=== PATIENT | female | born 1985 | race African-American/Black ===

== ENCOUNTER → 2017-08-04 | Outpatient (CLI) | payer BC ==
[2017-08-04 11:45] LABS: ADD MAN DIFF? NO
[2017-08-04 11:52] LABS: BASO # 0.1 x10^3/uL (0.0-0.2); BASO % 1 % (0-3); EOS # 0.1 x10^3/uL (0.0-0.7); EOS % 1 % (0-3); HEMOGLOBIN 12.5 g/dL (12.0-15.5); LYMPH # 2.8 x10^3/uL (1.0-4.8); LYMPH % 30 % (24-48); MEAN CORPUSCULAR HEMOGLOBIN 32 pg (25-35); MEAN CORPUSCULAR HGB CONC 35 g/dL (31-37); MEAN CORPUSCULAR VOLUME 92 fL (79-100); MONO # 0.7 x10^3/uL (0.0-1.1); MONO % 8 % (0-9); NEUT # 5.9 x10^3uL (1.8-7.7); NEUT % 61 % (31-73); PLATELET COUNT 336 x10^3/uL (140-400); RED BLOOD COUNT 3.92 x10^6/uL (3.50-5.40); RED CELL DISTRIBUTION WIDTH 13.2 % (11.5-14.5); WHITE BLOOD COUNT 9.6 x10^3/uL (4.0-11.0)
[2017-08-04 12:26] LABS: BILIRUBIN,URINE NEGATIVE (NEG); CLARITY,URINE CLEAR; COLOR,URINE YELLOW; GLUCOSE,URINE NEGATIVE (NEG); NITRITE,URINE NEGATIVE (NEG); PROTEIN,URINE NEGATIVE (NEG-TRACE); UROBILINOGEN,URINE 0.2 mg/dL (0.2 mg/dL)
[2017-08-04 12:29] LABS: BACTERIA,URINE 0 /HPF (0-FEW); RBC,URINE 0 /HPF (0-2); SQUAMOUS EPITHELIAL CELL,UR FEW /LPF; WBC,URINE 0 /HPF (0-4)
[2017-08-05 07:32] LABS: RPR Non Reactive (Non Reactive)
[2017-08-05 14:29] LABS: HEP B SURFACE AG Negative (Negative); HIV ANTIBODY Non Reactive (Non Reactive)
== END | disposition home or self-care (01) ==
LOC: LAB 11:36
DX: Z32.01 Encounter for pregnancy test, result positive (principal); O21.0 Mild hyperemesis gravidarum; Z3A.00 Weeks of gestation of pregnancy not specified
CPT/HCPCS: 36415; 81001; 85025; 86593; 86703; 86762; 86850; 86900; 86901; 87340

== ENCOUNTER 2017-09-15 16:55 | Outpatient (CLI) | payer BC | END 2017-09-16 | disposition home or self-care (01) | LOC: LAB 16:55 | DX: Z34.82 Encounter for supervision of other normal pregnancy, second trimester (principal); Z3A.16 16 weeks gestation of pregnancy | CPT/HCPCS: 36415 ==

== ENCOUNTER → 2017-10-01 | Outpatient (CLI) | payer BC | END | disposition home or self-care (01) | LOC: KCIC US 13:49 | DX: Z34.82 Encounter for supervision of other normal pregnancy, second trimester (principal); Z3A.18 18 weeks gestation of pregnancy | CPT/HCPCS: 76805 ==

== ENCOUNTER → 2017-12-15 | Outpatient (CLI) | payer BC ==
[2017-12-15 11:24] LABS: GLUCOSE 79 mg/dL (70-99)
[2017-12-15 12:29] LABS: GLUCOSE 92 mg/dL (70-99)
== END | disposition home or self-care (01) ==
LOC: LAB 10:17
DX: Z34.83 Encounter for supervision of other normal pregnancy, third trimester (principal); Z3A.29 29 weeks gestation of pregnancy
CPT/HCPCS: 36415; 82947; 82950

== ENCOUNTER 2018-02-14 00:37 | Inpatient (IN) | payer BC ==
[~2018-02-14] VITALS: Ht 170.2 cm; Wt 112.0 kg
[2018-02-14 01:32] LABS: BILIRUBIN,URINE NEGATIVE (NEG); CLARITY,URINE CLEAR; COLOR,URINE YELLOW; NITRITE,URINE NEGATIVE (NEG); PROTEIN,URINE NEGATIVE (NEG-TRACE); UROBILINOGEN,URINE 0.2 mg/dL (0.2 mg/dL)
[2018-02-14 01:51] LABS: BACTERIA,URINE FEW /HPF (0-FEW); RBC,URINE 0 /HPF (0-2); SQUAMOUS EPITHELIAL CELL,UR MOD /LPF
[2018-02-14] MEDS ORDERED: ONDANSETRON PF 4 MG/2 ML VIAL. IV PRN ×2 (05:45→15:45)
[2018-02-14] MEDS ORDERED: OXYTOCIN 30 UNIT/500 ML PREMIX 500 ML IV PRN ×3 (05:45→21:45)
[2018-02-14] MEDS ORDERED: LIDOCAINE 1% PF 30 ML VIAL. INJ PRN (05:45)
[2018-02-14] MEDS ORDERED: TERBUTALINE 1 MG/ML VIAL. SQ PRN (05:45)
[2018-02-14] MEDS ORDERED: MAG HYDROX/ALUMINUM HYD/SIMETH 30 ML ORAL.SUSP PO PRN ×2 (05:45→21:45)
[2018-02-14] MEDS ORDERED: 0.9 % SODIUM CHLORIDE 10 ML DISP.SYRIN. IV PRN ×2 (05:45→21:45)
[2018-02-14] MEDS ORDERED: ACETAMINOPHEN 325 MG TABLET. PO PRN ×2 (05:45→21:45)
[2018-02-14] MEDS ORDERED: fentaNYL PF VIAL 100 MCG/2 ML VIAL IV PRN (05:45)
--- NOTE | 2018-02-14 06:10 | PDOC1 ---
OB - History Hx of Present Care: Good Care Ultrasounds: Normal mid trimester US Obstetrical Complications: None Medical Complications: None Past Family/Social History * Past Medical, Surgical, Family and Obstetric Histories reviewed from chart. Rubella: Immune RPR/VDRL: Negative GBS Status: Unknown HBsAG: Negative OB - Chief Complaint & HPI Date of Admission: Date of Admission: Feb 14, 2018 at 00:37 Chief Complaint/History : 3 Para: 2 EGA: 38 Reason for admission: active labor Admission Nurse Assessment Rev: Yes OB - Admission Exam Physical Exam HEENT: Normal Heart: Regular Rate Lungs: Clear Abdomen: Gravid, Non tender, Soft Extremities: Edema Reflexes: Normal Cervical Dilatation: 2cm Effacement: 50% Station: -3 Membranes: Intact Heart Rate: Normal Accelerations: Accelerations Present Decelerations: No decelerations Contractions on Admission: 6-10 Minutes Apart Intensity: Moderate Text A: 38 wks IUP Active labor GBS unknown P: Admit for labor management. Retrieve GBS status from clinic. If unable to obtain GBS status, then start Pen G prophylaxis. NAVYA CASH Jr, MD Feb 14, 2018 06:10
[2018-02-14] MEDS: IV RINGERS,LACTATED 1000ML 1,000 ML IV SCH ×3 (06:12→16:27)
[2018-02-14 07:07] LABS: BASO % 0 % (0-3); EOS % 0 % (0-3); HEMATOCRIT 31.5 % (36.0-47.0); HEMOGLOBIN 10.8 g/dL (12.0-15.5); LYMPH # 2.6 x10^3/uL (1.0-4.8); LYMPH % 20 % (24-48); MEAN CORPUSCULAR HEMOGLOBIN 31 pg (25-35); MEAN CORPUSCULAR HGB CONC 34 g/dL (31-37); MEAN CORPUSCULAR VOLUME 89 fL (79-100); MONO # 0.8 x10^3/uL (0.0-1.1); MONO % 6 % (0-9); NEUT # 9.6 x10^3uL (1.8-7.7); NEUT % 74 % (31-73); PLATELET COUNT 325 x10^3/uL (140-400); RED BLOOD COUNT 3.53 x10^6/uL (3.50-5.40); RED CELL DISTRIBUTION WIDTH 14.8 % (11.5-14.5)
[2018-02-14] MEDS ORDERED: PENICILLIN G K 5,000,000 UNIT in IV DEXTROSE 5% 100ML 100 ML IV ONE (09:30)
[2018-02-14] MEDS: PENICILLIN G K 2,500,000 UNIT in IV DEXTROSE 5% 50 ML IV SCH ×3 (13:40→21:47)
[2018-02-14] MEDS ORDERED: OXYTOCIN PREMIX 30 UNIT/500 ML BAG. IV ONE (15:00)
[2018-02-14] MEDS ORDERED: ROPIVacaine 0.2% PF 10 ML VIAL. ONE ×2 (15:00→15:43)
[2018-02-14] MEDS ORDERED: L&D EPIDURAL SYRINGE 50 ML EP ONE (15:43)
[2018-02-14] MEDS ORDERED: fentaNYL PF VIAL 100 MCG/2 ML VIAL EPI ONE (15:45)
[2018-02-14] MEDS ORDERED: ePHEDrine PF IN SALINE 50 MG/5 ML DISP.SYRIN IV PRN (15:45)
[2018-02-14] MEDS ORDERED: NALOXONE 0.4 MG/ML VIAL. IV PRN (15:45)
[2018-02-14] MEDS ORDERED: 0.9 % SODIUM CHLORIDE 20 ML VIAL. IJ ONE (16:26)
[2018-02-14] MEDS: L&D EPIDURAL SYRINGE 50 ML EP PRN ×2 (16:53→20:06)
[2018-02-14] MEDS ORDERED: SIMETHICONE 80 MG TAB.CHEW PO PRN (21:45)
[2018-02-14] MEDS ORDERED: MMR per PROTOCOL. MC PRN (21:45)
[2018-02-14] MEDS ORDERED: PHENYLEPH/MINERAL OIL/PETROLAT RECTAL OINTMENT 28GM TUBE. RC PRN (21:45)
[2018-02-14] MEDS ORDERED: ZOLPIDEM 5 MG TABLET. PO PRN (21:45)
[2018-02-14] MEDS ORDERED: HYDROCORTISONE 1% TOPICAL OINTMENT 30GM TUBE. TP PRN (21:45)
[2018-02-14] MEDS ORDERED: MAGNESIUM HYDROXIDE 2,400 MG/30 ML ORAL.SUSP. PO PRN (21:45)
[2018-02-14] MEDS ORDERED: diphenhydrAMINE HCL 25 MG CAPSULE PO PRN (21:45)
[2018-02-14] MEDS ORDERED: BENZOCAINE 20% TOPICAL AEROSOL SPRAY 57GM CAN. TP PRN (21:45)
--- NOTE | 2018-02-14 21:45 | PDOC ---
VAGINAL DELIVERY DATE DATE: 02/14/18 TIME: 21:42 : 3 Para: 3 EGA: 38 VAGINAL DELIVERY: VTX VACCUM ASSISTED: No PLACENTA: Spontaneous 8/9 SEX: Female WEIGHT Weight [2665 gm ] Nuchal Cord: Yes, Times 1 Amniotic Fluid: Clear PAIN: Epidural EPISIOTOMY: No EXTENSION: No EBL 300 ml COMPLICATIONS none CONDITION pt. stable Signs of Intrauterine Infectio: None Shoulder Dystocia: No NAVYA CASH Jr, MD Feb 14, 2018 21:45
[2018-02-15] MEDS: IBUPROFEN 800 MG TABLET. PO PRN ×3 (00:21→21:54)
[2018-02-15 01:00] VITALS: BP 111/57
[2018-02-15] MEDS: PENICILLIN G K 2,500,000 UNIT in IV DEXTROSE 5% 50 ML IV SCH (01:30)
[2018-02-15] MEDS ORDERED: INFLUENZA VAX SCREEN BY RX. MC PRN ×2 (03:15→23:30)
[2018-02-15 04:50] VITALS: BP 117/76
[2018-02-15 05:49] LABS: BASO # 0.1 x10^3/uL (0.0-0.2); BASO % 1 % (0-3); EOS % 0 % (0-3); HEMATOCRIT 32.2 % (36.0-47.0); LYMPH # 2.5 x10^3/uL (1.0-4.8); LYMPH % 18 % (24-48); MEAN CORPUSCULAR HEMOGLOBIN 31 pg (25-35); MEAN CORPUSCULAR HGB CONC 34 g/dL (31-37); MEAN CORPUSCULAR VOLUME 90 fL (79-100); MONO # 0.9 x10^3/uL (0.0-1.1); MONO % 7 % (0-9); NEUT # 10.1 x10^3uL (1.8-7.7); NEUT % 74 % (31-73); PLATELET COUNT 316 x10^3/uL (140-400); RED BLOOD COUNT 3.57 x10^6/uL (3.50-5.40); RED CELL DISTRIBUTION WIDTH 15.2 % (11.5-14.5); WHITE BLOOD COUNT 13.6 x10^3/uL (4.0-11.0)
[2018-02-15] MEDS ORDERED: FERROUS SULFATE 325 MG TABLET. PO SCH (08:00)
[2018-02-15] MEDS: DOCUSATE SODIUM 100 MG CAPSULE. PO PRN ×2 (09:46→21:54)
[2018-02-15] MEDS: oxyCODONE/APAP 5/325 1 TAB TABLET PO PRN ×2 (09:47→23:38)
[2018-02-15 10:20] VITALS: BP 122/78
--- NOTE | 2018-02-15 12:54 | PDOC ---
OB Progress Note Date of Service 02/15/18 Time of Evaluation 1250 Notes Pt. feeling well. No complaints. Lab Laboratory Tests Test 02/14/18 01:00 02/14/18 05:31 02/15/18 05:25 Urine Collection Type Unknown Urine Color Yellow Urine Clarity Clear Urine pH 7.0 Urine Specific [place] 1.010 Urine Protein Negative mg/dL (NEG-TRACE) Urine Glucose (UA) Negative mg/dL (NEG) Urine Ketones (Stick) Negative mg/dL (NEG) Urine Blood Negative (NEG) Urine Nitrite Negative (NEG) Urine Bilirubin Negative (NEG) Urine Urobilinogen Dipstick 0.2 mg/dL (0.2 mg/dL) Urine Leukocyte Esterase Negative (NEG) Urine RBC 0 /HPF (0-2) Urine WBC 1-4 /HPF (0-4) Urine Squamous Epithelial Cells Mod /LPF Urine Bacteria Few /HPF (0-FEW) Urine Mucus Slight /LPF White Blood Count 13.0 x10^3/uL (4.0-11.0) 13.6 x10^3/uL (4.0-11.0) Red Blood Count 3.53 x10^6/uL (3.50-5.40) 3.57 x10^6/uL (3.50-5.40) Hemoglobin 10.8 g/dL (12.0-15.5) 11.0 g/dL (12.0-15.5) Hematocrit 31.5 % (36.0-47.0) 32.2 % (36.0-47.0) Mean Corpuscular Volume 89 fL (79-100) 90 fL (79-100) Mean Corpuscular Hemoglobin 31 pg (25-35) 31 pg (25-35) Mean Corpuscular Hemoglobin Concent 34 g/dL (31-37) 34 g/dL (31-37) Red Cell Distribution Width 14.8 % (11.5-14.5) 15.2 % (11.5-14.5) Platelet Count 325 x10^3/uL (140-400) 316 x10^3/uL (140-400) Neutrophils (%) (Auto) 74 % (31-73) 74 % (31-73) Lymphocytes (%) (Auto) 20 % (24-48) 18 % (24-48) Monocytes (%) (Auto) 6 % (0-9) 7 % (0-9) Eosinophils (%) (Auto) 0 % (0-3) 0 % (0-3) Basophils (%) (Auto) 0 % (0-3) 1 % (0-3) Neutrophils # (Auto) 9.6 x10^3uL (1.8-7.7) 10.1 x10^3uL (1.8-7.7) Lymphocytes # (Auto) 2.6 x10^3/uL (1.0-4.8) 2.5 x10^3/uL (1.0-4.8) Monocytes # (Auto) 0.8 x10^3/uL (0.0-1.1) 0.9 x10^3/uL (0.0-1.1) Eosinophils # (Auto) 0.0 x10^3/uL (0.0-0.7) 0.0 x10^3/uL (0.0-0.7) Basophils # (Auto) 0.0 x10^3/uL (0.0-0.2) 0.1 x10^3/uL (0.0-0.2) Treponema pallidum Antibody Nonreactive (Nonreactive) Laboratory Tests Test 02/15/18 05:25 White Blood Count 13.6 x10^3/uL (4.0-11.0) Red Blood Count 3.57 x10^6/uL (3.50-5.40) Hemoglobin 11.0 g/dL (12.0-15.5) Hematocrit 32.2 % (36.0-47.0) Mean Corpuscular Volume 90 fL (79-100) Mean Corpuscular Hemoglobin 31 pg (25-35) Mean Corpuscular Hemoglobin Concent 34 g/dL (31-37) Red Cell Distribution Width 15.2 % (11.5-14.5) Platelet Count 316 x10^3/uL (140-400) Neutrophils (%) (Auto) 74 % (31-73) Lymphocytes (%) (Auto) 18 % (24-48) Monocytes (%) (Auto) 7 % (0-9) Eosinophils (%) (Auto) 0 % (0-3) Basophils (%) (Auto) 1 % (0-3) Neutrophils # (Auto) 10.1 x10^3uL (1.8-7.7) Lymphocytes # (Auto) 2.5 x10^3/uL (1.0-4.8) Monocytes # (Auto) 0.9 x10^3/uL (0.0-1.1) Eosinophils # (Auto) 0.0 x10^3/uL (0.0-0.7) Basophils # (Auto) 0.1 x10^3/uL (0.0-0.2) Medications Current Medications Sodium Chloride (Normal Saline Flush) 3 ml QSHIFT PRN IV AFTER MEDS AND BLOOD DRAWS; Start 02/14/18 at 05:45 Ringer's Solution 1,000 ml @ 125 mls/hr Q8H IV Last administered on 02/14/18at 16:27; Start 02/14/18 at 05:45; Stop 02/15/18 at 02:47; Status DC Fentanyl Citrate (Fentanyl 2ml Vial) 100 mcg PRN Q10MIN PRN IV Labor pain; Start 02/14/18 at 05:45 Acetaminophen (Tylenol) 650 mg PRN Q6HRS PRN PO MILD PAIN / TEMP Last administered on 02/15/18at 02:36; Start 02/14/18 at 05:45; Stop 02/15/18 at 11:31 ; Status DC Ondansetron HCl (Zofran) 4 mg PRN Q4HRS PRN IV NAUSEA/VOMITING; Start 02/14/18 at 05:45; Status Cancel Al Hydroxide/Mg Hydroxide (Mylanta Plus Xs) 30 ml PRN Q4HRS PRN PO HEARTBURN / GAS; Start 02/14/18 at 05:45; Status Cancel Terbutaline Sulfate (Brethine) 0.25 mg 1X PRN PRN SQ SEE COMMENTS; Start at 05:45; Stop 02/15/18 at 05:44; Status DC Lidocaine HCl (Xylocaine 1% Pf 30ml Vial) 30 ml 1X PRN PRN INJ SEE COMMENTS; Start 02/14/18 at 05:45; Stop 02/16/18 at 05:44 Oxytocin/Sodium Chloride 500 ml @ 0 mls/hr CONT PRN PRN IV Post delivery bleeding; Start 02/14/18 at 05:45; Stop 02/15/18 at 11:31; Status DC Ibuprofen (Motrin) 800 mg PRN Q6HRS PRN PO PAIN Last administered on 02/15/18at 06:14; Start 02/14/18 at 05:45; Stop 02/15/18 at 11:31; Status DC Penicillin G Potassium 6621640 unit/Dextrose 100 ml @ 100 mls/hr 1X ONCE IV Last administered on 02/14/18at 09:34; Start 02/14/18 at 09:30; Stop 02/14/18 at 10:29; Status DC Penicillin G Potassium [id number] unit/Dextrose 50 ml @ 100 mls/hr Q4H IV Last administered on 02/14/18at 21:47; Start 02/14/18 at 13:30; Stop 02/15/18 at 02:47 ; Status DC Oxytocin/Sodium Chloride 500 ml @ 0 mls/hr CONT PRN IV SEE I/O RECORD; Start at 12:30 Ephedrine Sulfate (ePHEDrine PF IN SALINE SYRINGE) 10 mg PRN Q2MIN PRN IV IF SBP<90; Start 02/14/18 at 15:45 Naloxone HCl (Narcan) 0.04 mg PRN Q1MIN PRN IV SEE COMMENTS; Start 02/14/18 at 15:45 Fentanyl Citrate (Fentanyl 2ml Vial) 100 mcg 1X ONCE EPI Last administered on 02/14/18at 16:54; Start 02/14/18 at 15:45; Stop 02/14/18 at 15:46; Status DC Ropivacaine/ Fentanyl/NS 50 ml @ 14 mls/hr CONT PRN EP PAIN Last administered on 02/14/18at 20:06; Start 02/14/18 at 15:45 Ondansetron HCl (Zofran) 4 mg PRN Q6HRS PRN IV NAUSEA/VOMITING; Start 02/14/18 at 15:45 Ropivacaine (Naropin 0.2%) 10 ml STK-MED ONCE .ROUTE ; Start 02/14/18 at 15:43; Stop 02/14/18 at 15:44; Status DC Ropivacaine/ Fentanyl/NS 50 ml @ As Directed STK-MED ONCE EP ; Start 02/14/18 at 15:43; Stop 02/14/18 at 15:44; Status DC Sodium Chloride (SODIUM CHLORIDE 20ml) 20 ml STK-MED ONCE IJ ; Start 02/14/18 at 16:26; Stop 02/14/18 at 16:27; Status DC Sodium Chloride (Normal Saline Flush) 10 ml QSHIFT PRN IV AFTER MEDS AND BLOOD DRAWS; Start 02/14/18 at 21:45 Oxytocin/Sodium Chloride 500 ml @ 62.5 mls/hr CONT PRN IV SEE I/O RECORD; Start 02/14/18 at 21:45; Stop 02/15/18 at 05:44; Status DC Acetaminophen (Tylenol) 650 mg PRN Q6HRS PRN PO MILD PAIN / TEMP; Start at 21:45 Ibuprofen (Motrin) 800 mg PRN Q8HRS PRN PO INFLAMMATION/PAIN PREVENTION; Start 02/14/18 at 21:45 Docusate Sodium (Colace) 100 mg PRN BID PRN PO CONSTIPATION Last administered on 02/15/18at 09:46; Start 02/14/18 at 21:45 Magnesium Hydroxide (Milk Of Magnesia) 2,400 mg PRN DAILY PRN PO CONSTIPATION; Start 02/14/18 at 21:45 Al Hydroxide/Mg Hydroxide (Mylanta Plus Xs) 30 ml PRN Q4HRS PRN PO HEARTBURN / GAS; Start 02/14/18 at 21:45 Simethicone (Gas-X) 80 mg PRN AFTMEALHC PRN PO GAS / BLOATING; Start 02/14/18 at 21:45 Diphenhydramine HCl (Benadryl) 25 mg PRN Q6HRS PRN PO ITCHING; Start 02/14/18 at 21:45 Benzocaine (Americaine) 1 spray PRN QID PRN TP TOPICAL PAIN; Start 02/14/18 at 21:45 Phenyleph/Shark Oil/Min Oil/Petrol (Preparation H) 1 sara PRN QID PRN RC RECTAL PAIN; Start 02/14/18 at 21:45 Hydrocortisone (Cortaid) 1 sara PRN QID PRN TP PERINEAL PAIN; Start 02/14/18 at 21:45 Ferrous Sulfate (Feosol) 325 mg BIDWMEALS PO ; Start 02/15/18 at 08:00; Stop at 08:00; Status DC Zolpidem Tartrate (Ambien) 5 mg PRN QHS PRN PO INSOMNIA, MAY REPEAT X1; Start 02/14/18 at 21:45 Info (Do NOT chart on this placeholder) 1 ea 1X PRN PRN MC SEE COMMENTS; Start 02/14/18 at 21:45 Info (Do NOT chart on this placeholder) 1 ea 1X PRN PRN MC SEE COMMENTS; Start 02/14/18 at 21:45 Oxycodone/ Acetaminophen (Percocet 5/325) 2 tab PRN Q4HRS PRN PO MODERATE PAIN , SEVERE PAIN Last administered on 02/15/18at 09:47; Start 02/14/18 at 21:45 Influenza Virus Vaccine (Afluria Trivalent [id number] Syringe) 0.5 ml ONCE ONCE VAX IM ; Start 02/17/18 at 07:00; Stop 02/17/18 at 07:01 Info (FLU VACCINE SCREEN per RX) 1 each PRN 1X PRN MC SEE COMMENTS; Start 02/15 at 03:15; Status Cancel Oxytocin/Sodium Chloride (Oxytocin Premix Infusion) 30 unit STK-MED ONCE IV ; Start 02/14/18 at 15:00; Stop 02/15/18 at 08:33; Status DC Ropivacaine (Naropin 0.2%) 10 ml STK-MED ONCE .ROUTE ; Start 02/14/18 at 15:00; Stop 02/15/18 at 08:33; Status DC Exam Abd: soft, non tender, fundus firm Assessment PPD#1 s/p Plan of Care: Continue current Tx, Mgmt NAVYA CASH Jr, MD Feb 15, 2018 12:54
[2018-02-15 14:20] VITALS: BP 116/78
[2018-02-15] MEDS ORDERED: DIPHTH,PERTUSS(ACELL),TET TOX 0.5 ML DISP.SYRIN. VAX IM ONE (18:30)
[2018-02-15 19:45] VITALS: BP 122/80
[2018-02-16] MEDS: oxyCODONE/APAP 5/325 1 TAB TABLET PO PRN ×2 (00:57→09:23)
[2018-02-16] MEDS: IBUPROFEN 800 MG TABLET. PO PRN ×2 (05:41→15:45)
[2018-02-16] MEDS: DOCUSATE SODIUM 100 MG CAPSULE. PO PRN (05:41)
[2018-02-16 06:06] VITALS: BP 115/74
[2018-02-16 10:13] VITALS: BP 123/82
[2018-02-16] MEDS ORDERED: BISACODYL 10 MG SUPP.RECT. PR PRN (15:30)
[2018-02-16 16:30] VITALS: BP 121/77
--- NOTE | 2018-02-16 17:03 | PDOC3 ---
OB DISCHARGE SUMMARY DATE OF ADMISSION: 02/14/18 DATE OF DISCHARGE: 02/16/18 REASON FOR ADMISSION: Onset of labor INTRAPARTUM PROCEDURES: Spontanous Vag Deliv DISCHARGE DIAGNOSIS: Term Delivered DISCHARGE INFORMATION: Activity (ad philipp), Diet (regular), Instructions (pelvic rest x 6 wks) HOSPITAL COURSE Term gestation delivered vaginally without any complications. NAVYA CASH Jr, MD Feb 16, 2018 17:03
--- NOTE | 2018-02-16 17:04 | DISCH ---
DISCHARGE INSTRUCTIONS Condition on Discharge Condition on Discharge: Stable Activity After Discharge Activity Instructions for Disc: Activity as tolerated Lifting Instructions after Dis: No heavy lifting Driving Instructions after Dis: Do not drive today Diet after Discharge Diet after Discharge: Regular Contacting the DRHany after DC Call your doctor for: Concerns you may have Follow-Up Follow up with: Dr. Huffman in 6 wks. NAVYA HUFFMAN Jr, MD Feb 16, 2018 17:04
[2018-02-16] MEDS ORDERED: IBUP800T19 PO (17:05)
== END 2018-02-16 18:08 | disposition home or self-care (01) | DRG 775 ==
LOC: 3 SO LND 00:37 → OBSVTOIN 05:48 → 3 NORTH 02-15 00:30 → UNDODISIN 02-15 11:00
PROVIDERS: ADMIT Obstetrics & Gynecology; ATTEND Obstetrics & Gynecology
PROC: 10E0XZZ Delivery of Products of Conception, External Approach (ICD-10-PCS; principal; 2018-02-14)
PROC: 00HU33Z Insertion of Infusion Device into Spinal Canal, Percutaneous Approach (ICD-10-PCS; 2018-02-14)
PROC: 3E0R3BZ Introduction of Anesthetic Agent into Spinal Canal, Percutaneous Approach (ICD-10-PCS; 2018-02-14)
PROC: 3E0234Z Introduction of Serum, Toxoid and Vaccine into Muscle, Percutaneous Approach (ICD-10-PCS; 2018-02-16)
PROC: 3E0234Z Introduction of Serum, Toxoid and Vaccine into Muscle, Percutaneous Approach (ICD-10-PCS; 2018-02-16)
DX: O69.81X0 Labor and delivery complicated by cord around neck, without compression, not applicable or unspecified (principal); Z37.0 Single live birth; Z3A.38 38 weeks gestation of pregnancy; Z23 Encounter for immunization
CPT/HCPCS: 36415; 81001; 85025; 86592; 86850; 86900; 86901; 90471; 90715; 90756; G0378; G0379; J2540; J2590; J2795; J3010; J7120; Q2035

== ENCOUNTER → 2018-08-26 | Outpatient (CLI) | payer BC ==
[~2018-08-26] MED LIST: IBUP800T19 PO
--- NOTE | 2018-08-26 17:08 | KCIC ---
PREG MORE THAN OR EQ TO 14 WKS History: Estimated weight, anatomic scan, placenta previa Comparison: None. Findings: Multiple sonographic images of the uterus are submitted. Transvaginal imaging was also performed. There is a single intrauterine fetus in breech presentation. There is demonstrable cardiac activity 132 bpm. Exam is limited apparently due to to patient's body habitus, also limited evaluation of anatomy at this age. Amniotic fluid volume is subjectively within normal limits, estimated ROSE MARY 10 cm. There is complete placenta previa, extending about 2.8 cm over the internal cervical os.. There is posterior placenta. There is visualization of the bladder, stomach, and 2 kidneys. There is no obvious abnormality of the visualized spine although limited evaluation. brain, four-chamber view of the heart, cord insertion, and face are not well visualized on this exam. Cervix measured 4.3 cm. Biometry data are as follows: Biparietal diameter 3.87 cm corresponds with 17 weeks 5 days Head circumference 13.85 cm corresponds with 17 weeks 2 days Abdominal circumference 11.45 cm corresponds with 17 weeks 2 days Femur length 2.34 cm corresponds 17 weeks 0 days Adjusted ultrasound age 17 weeks 2 days with estimated delivery date by ultrasound 02/01/2019 LMP age 17 weeks 2 days with estimated delivery date of 02/01/2019 Estimated weight 184 g +/- 27 g HC/AC ratio within normal limits 1.21 Impression: 1. There is complete placenta previa. 2. There is breech presentation of the single intrauterine fetus. Adjusted ultrasound age is 17 weeks 2 days with estimated delivery date by ultrasound 02/01/2019. anatomy is incompletely seen on this exam due to age and also patient's body habitus. Electronically signed by: Vacne Peterson MD (08/26/2018 5:05 PM) [id number]
== END | disposition home or self-care (01) ==
LOC: KCIC US 14:04
PROVIDERS: ATTEND Obstetrics & Gynecology
DX: O44.02 Complete placenta previa NOS or without hemorrhage, second trimester (principal); O32.1XX0 Maternal care for breech presentation, not applicable or unspecified; Z3A.17 17 weeks gestation of pregnancy
CPT/HCPCS: 76805

== ENCOUNTER → 2018-11-10 | Outpatient (CLI) | payer BC ==
--- NOTE | 2018-11-11 09:24 | KCIC ---
Obstetrical ultrasound, 11/10/2018: HISTORY: Follow-up placenta previa There is a single intrauterine fetus in a cephalic orientation. The biparietal diameter measures 7.0 cm compatible with a gestational age of 28-29 weeks. This correlates well with the other measurements yielding a average gestational age of 28 weeks and 3 days and a sonographic EDC of 01/30/2019. This correlates well with the previous EDC of 02/01/2019 established on the exam of 08/26/2018. Normal activity and heart motion are seen. A four-chamber heart is evident with a heart rate of 155 bpm. Fluid is identified in the bladder and stomach. The visualized portions of the kidneys and spine are unremarkable. A three-vessel umbilical cord is identified with a normal cord insertion site. A normal amount of amniotic fluid is present with the ROSE MARY calculated 10.2. The placenta lies posteriorly. Its lower edge continues to overlie the internal cervical os. The cervical length was estimated at 6 cm. IMPRESSION: 1. Single viable intrauterine fetus of 28-29 weeks gestational age as described above, which has demonstrated normal interval growth since 08/26/2018. 2. Continued placenta previa. Electronically signed by: Uvaldo Rodríguez MD (11/11/2018 9:20 AM) [facility]
== END | disposition home or self-care (01) ==
LOC: KCIC US 07:51
PROVIDERS: ATTEND Obstetrics & Gynecology
DX: O44.02 Complete placenta previa NOS or without hemorrhage, second trimester (principal); Z3A.28 28 weeks gestation of pregnancy
CPT/HCPCS: 76805

== ENCOUNTER → 2018-11-28 | Outpatient (CLI) | payer BC ==
[2018-11-28 09:01] LABS: BASO % 0 % (0-3); EOS % 1 % (0-3); HEMATOCRIT 31.4 % (36.0-47.0); HEMOGLOBIN 10.6 g/dL (12.0-15.5); LYMPH # 1.7 x10^3/uL (1.0-4.8); LYMPH % 17 % (24-48); MEAN CORPUSCULAR HEMOGLOBIN 31 pg (25-35); MEAN CORPUSCULAR HGB CONC 34 g/dL (31-37); MEAN CORPUSCULAR VOLUME 90 fL (79-100); MONO # 0.5 x10^3/uL (0.0-1.1); MONO % 5 % (0-9); NEUT # 8.1 x10^3uL (1.8-7.7); NEUT % 78 % (31-73); PLATELET COUNT 288 x10^3/uL (140-400); RED BLOOD COUNT 3.48 x10^6/uL (3.50-5.40); RED CELL DISTRIBUTION WIDTH 14.2 % (11.5-14.5); WHITE BLOOD COUNT 10.3 x10^3/uL (4.0-11.0)
== END | disposition home or self-care (01) ==
LOC: LAB 07:30
PROVIDERS: ATTEND Obstetrics & Gynecology
DX: O09.90 Supervision of high risk pregnancy, unspecified, unspecified trimester (principal)
CPT/HCPCS: 36415; 82950; 85025

== ENCOUNTER → 2018-12-02 | Outpatient (CLI) | payer BC | END | disposition home or self-care (01) | LOC: LAB 08:40 | PROVIDERS: ATTEND Obstetrics & Gynecology | DX: O09.90 Supervision of high risk pregnancy, unspecified, unspecified trimester (principal) | CPT/HCPCS: 36415; 82947; 82950 ==

== ENCOUNTER 2019-01-03 14:36 | Observation (INO) | payer BC ==
[~2019-01-03] VITALS: Ht 170.2 cm; Wt 113.4 kg
[2019-01-03] MEDS ORDERED: BETAMET ACET&NA PHOS 30 MG/5 ML VIAL. IM ONE (14:45)
== END 2019-01-03 16:00 | disposition home or self-care (01) ==
LOC: 3 SO LND 14:36
PROVIDERS: ADMIT Obstetrics & Gynecology; ATTEND Obstetrics & Gynecology
DX: Z34.90 Encounter for supervision of normal pregnancy, unspecified, unspecified trimester (principal); Z3A.00 Weeks of gestation of pregnancy not specified
CPT/HCPCS: 96372; G0378; G0379; J0702

== ENCOUNTER 2019-01-04 05:32 | Inpatient (IN) | payer BC ==
[~2019-01-04] VITALS: Ht 170.2 cm; Wt 113.4 kg
[2019-01-04] MEDS ORDERED: IV RINGERS,LACTATED 1000ML 1,000 ML IV SCH (05:45)
[2019-01-04] MEDS ORDERED: CITRIC ACID/SODIUM CITRATE 30 ML SOLUTION. PO ONE (05:45)
[2019-01-04] MEDS ORDERED: BETAMET ACET&NA PHOS 30 MG/5 ML VIAL. IM ONE (06:00)
[2019-01-04 06:21] LABS: HEMATOCRIT 34.2 % (36.0-47.0); HEMOGLOBIN 11.7 g/dL (12.0-15.5); RED BLOOD COUNT 3.88 x10^6/uL (3.50-5.40); RED CELL DISTRIBUTION WIDTH 14.6 % (11.5-14.5); WHITE BLOOD COUNT 18.8 x10^3/uL (4.0-11.0)
[2019-01-04] MEDS: IV RINGERS,LACTATED 1000ML 1,000 ML IV SCH (07:03)
--- NOTE | 2019-01-04 07:03 | PDOC1 ---
OB - History Hx of Present Care: Good Care Ultrasounds: Abnormal US findings (complete placenta previa) Obstetrical Complications: Gestational Diabetes, Other (complete placenta previa) Medical Complications: None Past Family/Social History * Past Medical, Surgical, Family and Obstetric Histories reviewed from chart. Rubella: Immune RPR/VDRL: Negative GBS Status: Negative HBsAG: Negative OB - Chief Complaint & HPI Date of Admission: Date of Admission: Jan 04, 2019 at 05:32 Chief Complaint/History : 5 Para: 4 EGA: 36 Reason for admission: section (Complete placenta previa and desires BTL) Admission Nurse Assessment Rev: Yes OB - Admission Exam Physical Exam HEENT: Normal Heart: Regular Rate Lungs: Clear Abdomen: Gravid, Non tender, Soft Extremities: Edema Reflexes: Normal Cervical Dilatation: None Effacement: 0% Station: Ballotable Membranes: Intact Heart Rate: Normal Accelerations: Accelerations Present Decelerations: No decelerations Contractions on Admission: >10 Minutes Apart Intensity: Mild Text A: 36 wks IUP Complete Placenta Previa Desires BTL P: Admit for section and BTL. NAVYA CASH Jr, MD Jan 04, 2019 07:03
[2019-01-04] MEDS ORDERED: ONDANSETRON PF 4 MG/2 ML VIAL. ONE (07:14)
[2019-01-04] MEDS ORDERED: MORPHINE PF 10 MG/10 ML AMPUL. ONE (07:14)
[2019-01-04] MEDS ORDERED: OXYTOCIN 10 UNIT/ML VIAL. ONE ×2 (07:14→08:47)
[2019-01-04] MEDS ORDERED: FAMOTIDINE 20 MG/2 ML VIAL ONE (07:14)
[2019-01-04] MEDS ORDERED: PHENYLEPHRINE in 0.9% NACL PF 1 MG/10 ML SYRINGE. IV ONE (07:14)
[2019-01-04] MEDS ORDERED: METOCLOPRAMIDE HCL 10 MG/2 ML VIAL. ONE (07:14)
[2019-01-04] MEDS ORDERED: fentaNYL PF VIAL 100 MCG/2 ML VIAL ONE (07:14)
[2019-01-04] MEDS ORDERED: ePHEDrine PF IN SALINE 50 MG/10 ML SYRINGE. IV ONE (07:14)
[2019-01-04] MEDS ORDERED: KETOROLAC 30 MG/ML VIAL. IV PRN ×2 (07:15→08:45)
[2019-01-04] MEDS ORDERED: DEXAMETHASONE SOD PHOS 4 MG/ML VIAL ONE (07:15)
[2019-01-04] MEDS ORDERED: PROPOFOL 20 ML IV ONE (08:35)
[2019-01-04] MEDS ORDERED: KETOROLAC 30 MG/ML INJ FOR OR. INJ ONE (08:36)
--- NOTE | 2019-01-04 08:44 | PDOC4 ---
OB Operative Note Date: Jan 04, 2019 PRE OP DIAGNOSIS: Other (Complete Placenta Previa and desires BTL) POST OP DIAGNOSIS: Other (Same) OPERATION PERFORMED: [facility] (BT) Surgeon Dr. Huffman Inspector Fuel Hose Dr. Monae Anesthesia: Regional (Spinal) Blood Loss 700 ml Specimen placenta and infant and bilateral tubal segments OB Findings: Position (Vertex), Sex (Female), (7/9), Weight (6 Lb) Complications none Additional Remarks pt. NAVYA Layton Jr, MD Jan 04, 2019 08:44
[2019-01-04] MEDS ORDERED: ZOLPIDEM 5 MG TABLET. PO PRN (08:45)
[2019-01-04] MEDS ORDERED: ONDANSETRON PF 4 MG/2 ML VIAL. IV PRN (08:45)
[2019-01-04] MEDS ORDERED: MAG HYDROX/ALUMINUM HYD/SIMETH 30 ML ORAL.SUSP PO PRN (08:45)
[2019-01-04] MEDS ORDERED: 0.9 % SODIUM CHLORIDE 10 ML DISP.SYRIN. IV PRN (08:45)
[2019-01-04] MEDS ORDERED: OXYTOCIN 30 UNIT/500 ML PREMIX 500 ML IV PRN (08:45)
[2019-01-04] MEDS ORDERED: diphenhydrAMINE ORAL ELIXIR 12.5 MG/5 ML ML PO PRN (08:45)
--- NOTE | 2019-01-04 10:09 | OP ---
DATE OF SURGERY: 01/04/2019 PREOPERATIVE DIAGNOSES: 1. Thirty-six weeks' intrauterine . 2. Complete placenta previa. 3. Desires bilateral tubal ligation. POSTOPERATIVE DIAGNOSES: 1. Thirty-six weeks' intrauterine . 2. Complete placenta previa. 3. Desires bilateral tubal ligation. PROCEDURE: Primary low transverse section and bilateral tubal ligation. SURGEON: Navya Huffman MD SWAGE TOOLSETTER: Dr. Monae. ANESTHESIA: Spinal. ESTIMATED BLOOD LOSS: 700 mL. COMPLICATIONS: None. FINDINGS: Viable female , Apgars 7 and 9, weight 6 pounds even. Three-vessel cord placenta delivered manually intact. SUMMARY: A 33-year-old at 36 weeks' gestation with complete placenta previa, presented for primary low transverse section and bilateral tubal ligation. The patient did receive late dose steroids with betamethasone. She was counseled on the risks, benefits and expectations and voiced clear understanding to proceed. DESCRIPTION OF PROCEDURE: The patient was taken to surgery suite and placed in dorsal supine position. She was prepped with ChloraPrep and draped in sterile fashion. After adequate anesthesia, Pfannenstiel skin incision was made with scalpel down to the fascia. The fascia was extended laterally using curved Linares scissors. The superior edge of fascia was grasped with two Best clamps and dissected free of the abdominal rectus muscles using blunt dissection along with Bovie cautery. The same process took place inferiorly. The abdominal rectus muscles were dissected bluntly at the midline. Peritoneum was grasped with 2 hemostats and entered sharply with Metzenbaum scissors. This incision was extended superiorly as well as inferiorly. The Shan ring retractor was placed. Low transverse hysterotomy incision was made with scalpel down to the amniotic sac. Hysterotomy incision was extended laterally and superiorly digitally. Amniotomy was performed with Allis clamp, which elicited moderate amount of clear fluid. With the aid of fundal pressure, the 's head was delivered in a smooth atraumatic manner. With additional fundal pressure, the anterior shoulder was delivered followed by posterior shoulder and rest of female was delivered. was suctioned with bulb syringe orally and nasally, umbilical cord was clamped twice and cut and viable female infant was handed to waiting nursing staff. Umbilical cord blood as well as arterial blood was then obtained. Three-vessel cord placenta was delivered manually intact. The uterus was then exteriorized and cleared of clot and debris with moist lap. Hysterotomy incision was reapproximated using 1 Vicryl suture in running locked fashion. Four [id number] sutures were placed for better hemostasis. The uterus palpated firm. Fallopian tubes and ovaries appeared normal bilaterally. Posterior cul-de-sac was cleared of clot and debris with a moist lap. A [place] was used to grasp the left fallopian tube. The mesosalpinx was undermined with Bovie cautery. Proximal and distal ends of the fallopian tube were tied with plain gut suture. The mid section of fallopian tube was excised using Metzenbaum scissors. The two telescoping ends were visualized and cautery was utilized for good hemostasis. Same process took place with the right adnexa. The uterus was then returned to the abdomen. Pericolic gutters were cleared of clot and debris with a moist lap. Posterior cul-de-sac was cleared of clot and debris with a moist lap. The Shan ring retractor was removed. The peritoneum was reapproximated using #1 Vicryl suture in running fashion. Fascia was reapproximated using 0 Vicryl suture in running fashion. Skin was reapproximated using 4-0 Vicryl suture in subcuticular manner. The patient tolerated the procedure well and was taken to recovery room in stable condition. Sponge and needle count correct x 3. NAVYA HUFFMAN MD DR: SCOTT/pernell JOB#: [id number] / [id number]
[2019-01-04 11:00] VITALS: BP 108/56
[2019-01-04 11:30] VITALS: BP 98/52
[2019-01-04 12:00] VITALS: BP 118/58
[2019-01-04 13:00] VITALS: BP 109/67
[2019-01-04] MEDS: diphenhydrAMINE 50 MG/ML VIAL IVP PRN ×2 (14:31→22:07)
[2019-01-04] MEDS: DOCUSATE SODIUM 100 MG CAPSULE. PO PRN (17:31)
[2019-01-04] MEDS: SIMETHICONE 80 MG TAB.CHEW PO PRN (17:31)
[2019-01-04] MEDS: FERROUS SULFATE 325 MG TABLET. PO SCH (17:31)
[2019-01-04] MEDS: IBUPROFEN 400 MG TABLET. PO PRN ×2 (17:32→22:06)
[2019-01-04 17:52] VITALS: BP 125/75
[2019-01-04 21:15] VITALS: BP 120/74
[2019-01-04] MEDS: oxyCODONE/APAP 5/325 1 TAB TABLET PO PRN (22:06)
[2019-01-05] MEDS: IV RINGERS,LACTATED 1000ML 1,000 ML IV SCH (00:07)
[2019-01-05 01:30] VITALS: BP 100/52
[2019-01-05 04:50] VITALS: BP 128/77
[2019-01-05] MEDS: oxyCODONE/APAP 5/325 1 TAB TABLET PO PRN ×4 (04:58→22:14)
[2019-01-05] MEDS: IBUPROFEN 400 MG TABLET. PO PRN ×3 (04:59→16:23)
[2019-01-05 05:00] LABS: BASO # 0.1 x10^3/uL (0.0-0.2); BASO % 0 % (0-3); EOS % 0 % (0-3); HEMOGLOBIN 9.5 g/dL (12.0-15.5); LYMPH % 8 % (24-48); MEAN CORPUSCULAR HEMOGLOBIN 30 pg (25-35); MEAN CORPUSCULAR HGB CONC 34 g/dL (31-37); MEAN CORPUSCULAR VOLUME 89 fL (79-100); MONO # 1.2 x10^3/uL (0.0-1.1); MONO % 5 % (0-9); NEUT # 21.4 x10^3/uL (1.8-7.7); NEUT % 87 % (31-73); PLATELET COUNT 269 x10^3/uL (140-400); RED BLOOD COUNT 3.15 x10^6/uL (3.50-5.40); RED CELL DISTRIBUTION WIDTH 14.6 % (11.5-14.5); WHITE BLOOD COUNT 24.7 x10^3/uL (4.0-11.0)
[2019-01-05] MEDS: diphenhydrAMINE 50 MG/ML VIAL IVP PRN (05:14)
[2019-01-05 08:02] LABS: % BANDS 9 % (0-9); % LYMPHS 10 % (24-48); % MONOS 4 % (0-10); % SEGS 77 % (35-66); PLT ESTIMATE ADEQUATE (ADEQUATE)
[2019-01-05] MEDS ORDERED: HYDROmorphone 2 MG/ML VIAL IVP PRN (08:15)
[2019-01-05] MEDS: FERROUS SULFATE 325 MG TABLET. PO SCH ×2 (09:02→16:22)
[2019-01-05] MEDS: DOCUSATE SODIUM 100 MG CAPSULE. PO PRN ×2 (09:02→22:14)
--- NOTE | 2019-01-05 09:49 | PDOC ---
OB Progress Note Date of Service 01/05/19 Time of Evaluation 0945 Notes Pt. feeling well. Pain controlled. No complaints. Lab Laboratory Tests Test 01/04/19 06:00 01/05/19 04:45 White Blood Count 18.8 x10^3/uL (4.0-11.0) 24.7 x10^3/uL (4.0-11.0) Red Blood Count 3.88 x10^6/uL (3.50-5.40) 3.15 x10^6/uL (3.50-5.40) Hemoglobin 11.7 g/dL (12.0-15.5) 9.5 g/dL (12.0-15.5) Hematocrit 34.2 % (36.0-47.0) 28.0 % (36.0-47.0) Mean Corpuscular Volume 88 fL (79-100) 89 fL (79-100) Mean Corpuscular Hemoglobin 30 pg (25-35) 30 pg (25-35) Mean Corpuscular Hemoglobin Concent 34 g/dL (31-37) 34 g/dL (31-37) Red Cell Distribution Width 14.6 % (11.5-14.5) 14.6 % (11.5-14.5) Platelet Count 321 x10^3/uL (140-400) 269 x10^3/uL (140-400) Treponema pallidum Antibody Nonreactive (Nonreactive) Neutrophils (%) (Auto) 87 % (31-73) Lymphocytes (%) (Auto) 8 % (24-48) Monocytes (%) (Auto) 5 % (0-9) Eosinophils (%) (Auto) 0 % (0-3) Basophils (%) (Auto) 0 % (0-3) Neutrophils # (Auto) 21.4 x10^3/uL (1.8-7.7) Lymphocytes # (Auto) 2.0 x10^3/uL (1.0-4.8) Monocytes # (Auto) 1.2 x10^3/uL (0.0-1.1) Eosinophils # (Auto) 0.0 x10^3/uL (0.0-0.7) Basophils # (Auto) 0.1 x10^3/uL (0.0-0.2) Segmented Neutrophils % 77 % (35-66) Band Neutrophils % 9 % (0-9) Lymphocytes % 10 % (24-48) Monocytes % 4 % (0-10) Platelet Estimate Adequate (ADEQUATE) Laboratory Tests Test 01/05/19 04:45 White Blood Count 24.7 x10^3/uL (4.0-11.0) Red Blood Count 3.15 x10^6/uL (3.50-5.40) Hemoglobin 9.5 g/dL (12.0-15.5) Hematocrit 28.0 % (36.0-47.0) Mean Corpuscular Volume 89 fL (79-100) Mean Corpuscular Hemoglobin 30 pg (25-35) Mean Corpuscular Hemoglobin Concent 34 g/dL (31-37) Red Cell Distribution Width 14.6 % (11.5-14.5) Platelet Count 269 x10^3/uL (140-400) Neutrophils (%) (Auto) 87 % (31-73) Lymphocytes (%) (Auto) 8 % (24-48) Monocytes (%) (Auto) 5 % (0-9) Eosinophils (%) (Auto) 0 % (0-3) Basophils (%) (Auto) 0 % (0-3) Neutrophils # (Auto) 21.4 x10^3/uL (1.8-7.7) Lymphocytes # (Auto) 2.0 x10^3/uL (1.0-4.8) Monocytes # (Auto) 1.2 x10^3/uL (0.0-1.1) Eosinophils # (Auto) 0.0 x10^3/uL (0.0-0.7) Basophils # (Auto) 0.1 x10^3/uL (0.0-0.2) Segmented Neutrophils % 77 % (35-66) Band Neutrophils % 9 % (0-9) Lymphocytes % 10 % (24-48) Monocytes % 4 % (0-10) Platelet Estimate Adequate (ADEQUATE) Medications Current Medications Ringer's Solution 1,000 ml @ 1,000 mls/hr Q1H IV Last administered on 01/04/19at 05:58; Start 01/04/19 at 05:45; Stop 01/04/19 at 06:44; Status DC Ringer's Solution 1,000 ml @ 125 mls/hr Q8H IV Last administered on 01/05/19at 00:07; Start 01/04/19 at 05:45 Cefazolin Sodium/ Dextrose 50 ml @ 100 mls/hr 1X ONCE IV Last administered on 01/04/19at 07:06; Start 01/04/19 at 06:00; Stop 01/04/19 at 06:29; Status DC Citric Acid/ Sodium Citrate (Bicitra) 30 ml 1X ONCE PO Last administered on 01/04/19at 07:07; Start 01/04/19 at 05:45; Stop 01/04/19 at 05:46; Status DC Betamethasone Sodium Phosphate (Celestone Soluspan) 12 mg 1X ONCE IM Last administered on 01/04/19at 05:58; Start 01/04/19 at 06:00; Stop 01/04/19 at 06 :01; Status DC Ketorolac Tromethamine (Toradol 30mg Vial) 30 mg PRN Q6HRS PRN IV PAIN; Start 01/04/19 at 07:15; Stop 01/04/19 at 08:53; Status DC Famotidine (Pepcid Vial) 20 mg STK-MED ONCE .ROUTE ; Start 01/04/19 at 07:14; Stop 01/04/19 at 07:15; Status DC Metoclopramide HCl (Reglan Vial) 10 mg STK-MED ONCE .ROUTE ; Start 01/04/19 at 07:14; Stop 01/04/19 at 07:15; Status DC Ondansetron HCl (Zofran) 4 mg STK-MED ONCE .ROUTE ; Start 01/04/19 at 07:14; Stop 01/04/19 at 07:15; Status DC Phenylephrine HCl (PHENYLEPHRINE in 0.9% NACL PF) 1 mg STK-MED ONCE IV ; Start 01/04/19 at 07:14; Stop 01/04/19 at 07:15; Status DC Oxytocin (Pitocin) 10 unit STK-MED ONCE .ROUTE ; Start 01/04/19 at 07:14; Stop 01/04/19 at 07:15; Status DC Ephedrine Sulfate (ePHEDrine PF IN SALINE SYRINGE) 50 mg STK-MED ONCE IV ; Start 01/04/19 at 07:14; Stop 01/04/19 at 07:15; Status DC Morphine Sulfate (Morphine Preservative Free) 10 mg STK-MED ONCE .ROUTE ; Start 01/04/19 at 07:14; Stop 01/04/19 at 07:15; Status DC Fentanyl Citrate (Fentanyl 2ml Vial) 100 mcg STK-MED ONCE .ROUTE ; Start 01/04/19 at 07:14; Stop 01/04/19 at 07:15; Status DC Dexamethasone Sodium Phosphate (Decadron) 4 mg STK-MED ONCE .ROUTE ; Start 01/04/19 at 07:15; Stop 01/04/19 at 07:15; Status DC Propofol 20 ml @ As Directed STK-MED ONCE IV ; Start 01/04/19 at 08:35; Stop 01/04/19 at 08:36; Status DC Ketorolac Tromethamine (Toradol For Or Only) 30 mg STK-MED ONCE INJ ; Start 01/04/19 at 08:36; Stop 01/04/19 at 08:37; Status DC Sodium Chloride (Normal Saline Flush) 3 ml QSHIFT PRN IV AFTER MEDS AND BLOOD DRAWS; Start 01/04/19 at 08:45 Oxytocin/Sodium Chloride 500 ml @ 125 mls/hr CONT PRN IV EXCESSIVE POST- BLEEDING; Start 01/04/19 at 08:45; Stop 01/04/19 at 16:44; Status DC Ibuprofen (Motrin) 800 mg PRN Q4HRS PRN PO INFLAMMATION Last administered on 01/05/19at 04:59; Start 01/04/19 at 08:45 Ondansetron HCl (Zofran) 4 mg PRN Q6HRS PRN IV NAUSEA/VOMITING; Start 01/04/19 at 08:45 Docusate Sodium (Colace) 100 mg PRN BID PRN PO CONSTIPATION Last administered o n 01/05/19at 09:02; Start 01/04/19 at 08:45 Al Hydroxide/Mg Hydroxide (Mylanta Plus Xs) 30 ml PRN Q4HRS PRN PO HEARTBURN / GAS; Start 01/04/19 at 08:45 Simethicone (Gas-X) 80 mg PRN AFTMEALHC PRN PO GAS / BLOATING Last administered on 01/04/19at 17:32; Start 01/04/19 at 08:45 Diphenhydramine HCl (Benadryl Oral Elixir) 12.5 mg PRN Q6HRS PRN PO ITCHING; Start 01/04/19 at 08:45 Ferrous Sulfate (Feosol) 325 mg BIDWMEALS PO Last administered on 01/05/19at 09:02; Start 01/04/19 at 17:00 Zolpidem Tartrate (Ambien) 5 mg PRN QHS PRN PO INSOMNIA, MAY REPEAT X1; Start 01/04/19 at 08:45 Oxycodone/ Acetaminophen (Percocet 5/325) 2 tab PRN Q4HRS PRN PO MODERATE PAIN, SEVERE PAIN Last administered on 01/05/19at 04:58; Start 01/04/19 at 08:45 Ketorolac Tromethamine (Toradol 30mg Vial) 30 mg PRN Q6HRS PRN IV PAIN; Start 01/04/19 at 08:45; Stop 01/09/19 at 08:44 Oxytocin (Pitocin) 10 unit STK-MED ONCE .ROUTE ; Start 01/04/19 at 08:47; Stop 01/04/19 at 08:47; Status DC Diphenhydramine HCl (Benadryl) 25 mg PRN Q6HRS PRN IVP ITCHING Last administered on 01/05/19at 05:14; Start 01/04/19 at 14:30 Hydromorphone HCl (Dilaudid) 0.2 mg PRN Q4HRS PRN IVP PAIN; Start 01/05/19 at 08:15 Active Scripts Active Ibuprofen 800 Mg Tablet 800 Mg PO PRN Q8HRS PRN Exam Abd: soft, mild tendernes, fundus firm Bandage removed. Incision site: clean, dry and intact Assessment POD#1 c/s and BTL Plan of Care: Continue current Tx, Mgmt NAVYA CASH Jr, MD Jan 05, 2019 09:49
[2019-01-05 10:57] VITALS: BP 122/77
[2019-01-05 16:52] VITALS: BP 109/72
[2019-01-05 22:15] VITALS: BP 107/67
[2019-01-06] MEDS: IBUPROFEN 400 MG TABLET. PO PRN ×4 (00:50→23:46)
[2019-01-06] MEDS: oxyCODONE/APAP 5/325 1 TAB TABLET PO PRN ×5 (06:28→23:46)
[2019-01-06 06:30] VITALS: BP 122/70
--- NOTE | 2019-01-06 08:41 | PDOC ---
OB Progress Note Date of Service 01/06/19 Time of Evaluation 0840 Notes Pt. feeling well. No complaints. Lab Laboratory Tests Test 01/05/19 04:45 White Blood Count 24.7 x10^3/uL (4.0-11.0) Red Blood Count 3.15 x10^6/uL (3.50-5.40) Hemoglobin 9.5 g/dL (12.0-15.5) Hematocrit 28.0 % (36.0-47.0) Mean Corpuscular Volume 89 fL (79-100) Mean Corpuscular Hemoglobin 30 pg (25-35) Mean Corpuscular Hemoglobin Concent 34 g/dL (31-37) Red Cell Distribution Width 14.6 % (11.5-14.5) Platelet Count 269 x10^3/uL (140-400) Neutrophils (%) (Auto) 87 % (31-73) Lymphocytes (%) (Auto) 8 % (24-48) Monocytes (%) (Auto) 5 % (0-9) Eosinophils (%) (Auto) 0 % (0-3) Basophils (%) (Auto) 0 % (0-3) Neutrophils # (Auto) 21.4 x10^3/uL (1.8-7.7) Lymphocytes # (Auto) 2.0 x10^3/uL (1.0-4.8) Monocytes # (Auto) 1.2 x10^3/uL (0.0-1.1) Eosinophils # (Auto) 0.0 x10^3/uL (0.0-0.7) Basophils # (Auto) 0.1 x10^3/uL (0.0-0.2) Segmented Neutrophils % 77 % (35-66) Band Neutrophils % 9 % (0-9) Lymphocytes % 10 % (24-48) Monocytes % 4 % (0-10) Platelet Estimate Adequate (ADEQUATE) Medications Current Medications Ringer's Solution 1,000 ml @ 1,000 mls/hr Q1H IV Last administered on 01/04/19at 05:58; Start 01/04/19 at 05:45; Stop 01/04/19 at 06:44; Status DC Ringer's Solution 1,000 ml @ 125 mls/hr Q8H IV Last administered on 01/05/19at 00:07; Start 01/04/19 at 05:45; Stop 01/05/19 at 14:55; Status DC Cefazolin Sodium/ Dextrose 50 ml @ 100 mls/hr 1X ONCE IV Last administered on 01/04/19at 07:06; Start 01/04/19 at 06:00; Stop 01/04/19 at 06:29; Status DC Citric Acid/ Sodium Citrate (Bicitra) 30 ml 1X ONCE PO Last administered on 01/04/19at 07:07; Start 01/04/19 at 05:45; Stop 01/04/19 at 05:46; Status DC Betamethasone Sodium Phosphate (Celestone Soluspan) 12 mg 1X ONCE IM Last administered on 01/04/19at 05:58; Start 01/04/19 at 06:00; Stop 01/04/19 at 06:01; Status DC Ketorolac Tromethamine (Toradol 30mg Vial) 30 mg PRN Q6HRS PRN IV PAIN; Start 01/04/19 at 07:15; Stop 01/04/19 at 08:53; Status DC Famotidine (Pepcid Vial) 20 mg STK-MED ONCE .ROUTE ; Start 01/04/19 at 07:14; Stop 01/04/19 at 07:15; Status DC Metoclopramide HCl (Reglan Vial) 10 mg STK-MED ONCE .ROUTE ; Start 01/04/19 at 07:14; Stop 01/04/19 at 07:15; Status DC Ondansetron HCl (Zofran) 4 mg STK-MED ONCE .ROUTE ; Start 01/04/19 at 07:14; Stop 01/04/19 at 07:15; Status DC Phenylephrine HCl (PHENYLEPHRINE in 0.9% NACL PF) 1 mg STK-MED ONCE IV ; Start 01/04/19 at 07:14; Stop 01/04/19 at 07:15; Status DC Oxytocin (Pitocin) 10 unit STK-MED ONCE .ROUTE ; Start 01/04/19 at 07:14; Stop 01/04/19 at 07:15; Status DC Ephedrine Sulfate (ePHEDrine PF IN SALINE SYRINGE) 50 mg STK-MED ONCE IV ; Start 01/04/19 at 07:14; Stop 01/04/19 at 07:15; Status DC Morphine Sulfate (Morphine Preservative Free) 10 mg STK-MED ONCE .ROUTE ; Start 01/04/19 at 07:14; Stop 01/04/19 at 07:15; Status DC Fentanyl Citrate (Fentanyl 2ml Vial) 100 mcg STK-MED ONCE .ROUTE ; Start 01/04/19 at 07:14; Stop 01/04/19 at 07:15; Status DC Dexamethasone Sodium Phosphate (Decadron) 4 mg STK-MED ONCE .ROUTE ; Start 01/04/19 at 07:15; Stop 01/04/19 at 07:15; Status DC Propofol 20 ml @ As Directed STK-MED ONCE IV ; Start 01/04/19 at 08:35; Stop 01/04/19 at 08:36; Status DC Ketorolac Tromethamine (Toradol For Or Only) 30 mg STK-MED ONCE INJ ; Start 01/04/19 at 08:36; Stop 01/04/19 at 08:37; Status DC Sodium Chloride (Normal Saline Flush) 3 ml QSHIFT PRN IV AFTER MEDS AND BLOOD DRAWS; Start 01/04/19 at 08:45; Stop 01/05/19 at 14:55; Status DC Oxytocin/Sodium Chloride 500 ml @ 125 mls/hr CONT PRN IV EXCESSIVE POST- BLEEDING; Start 01/04/19 at 08:45; Stop 01/04/19 at 16:44; Status DC Ibuprofen (Motrin) 800 mg PRN Q4HRS PRN PO INFLAMMATION Last administered on 01/06/19at 00:50; Start 01/04/19 at 08:45 Ondansetron HCl (Zofran) 4 mg PRN Q6HRS PRN IV NAUSEA/VOMITING; Start 01/04/19 at 08:45; Stop 01/05/19 at 14:55; Status DC Docusate Sodium (Colace) 100 mg PRN BID PRN PO CONSTIPATION Last administered on 01/05/19at 22:14; Start 01/04/19 at 08:45 Al Hydroxide/Mg Hydroxide (Mylanta Plus Xs) 30 ml PRN Q4HRS PRN PO HEARTBURN / GAS; Start 01/04/19 at 08:45 Simethicone (Gas-X) 80 mg PRN AFTMEALHC PRN PO GAS / BLOATING Last administered on 01/04/19at 17:32; Start 01/04/19 at 08:45 Diphenhydramine HCl (Benadryl Oral Elixir) 12.5 mg PRN Q6HRS PRN PO ITCHING; Start 01/04/19 at 08:45 Ferrous Sulfate (Feosol) 325 mg BIDWMEALS PO Last administered on 01/05/19at 16:23; Start 01/04/19 at 17:00 Zolpidem Tartrate (Ambien) 5 mg PRN QHS PRN PO INSOMNIA, MAY REPEAT X1; Start 01/04/19 at 08:45 Oxycodone/ Acetaminophen (Percocet 5/325) 2 tab PRN Q4HRS PRN PO MODERATE PAIN, SEVERE PAIN Last administered on 01/06/19at 06:28; Start 01/04/19 at 08:45 Ketorolac Tromethamine (Toradol 30mg Vial) 30 mg PRN Q6HRS PRN IV PAIN; Start 01/04/19 at 08:45; Stop 01/05/19 at 14:55; Status DC Oxytocin (Pitocin) 10 unit STK-MED ONCE .ROUTE ; Start 01/04/19 at 08:47; Stop 01/04/19 at 08:47; Status DC Diphenhydramine HCl (Benadryl) 25 mg PRN Q6HRS PRN IVP ITCHING Last administered on 01/05/19at 05:14; Start 01/04/19 at 14:30; Stop 01/05/19 at 14:55; Status DC Hydromorphone HCl (Dilaudid) 0.2 mg PRN Q4HRS PRN IVP PAIN; Start 01/05/19 at 08:15; Stop 01/05/19 at 18:40; Status DC Active Scripts Active Ibuprofen 800 Mg Tablet 800 Mg PO PRN Q8HRS PRN Exam Abd: soft, non tender, fundus firm Incision site: clean, dry and intact Assessment POD#2 s/p c/s and BTL Plan of Care: Continue current Tx, NAVYA Donnelly Jr, MD Jan 06, 2019 08:41
[2019-01-06] MEDS: FERROUS SULFATE 325 MG TABLET. PO SCH ×2 (08:48→17:45)
[2019-01-06] MEDS: DOCUSATE SODIUM 100 MG CAPSULE. PO PRN ×2 (08:48→17:45)
[2019-01-06 08:49] VITALS: BP 128/79
[2019-01-06 14:00] VITALS: BP 124/68
[2019-01-06] MEDS: SIMETHICONE 80 MG TAB.CHEW PO PRN (17:45)
[2019-01-06 17:47] VITALS: BP 124/79
[2019-01-06 21:45] VITALS: BP 130/75
[2019-01-07 04:45] VITALS: BP 126/83
[2019-01-07] MEDS: oxyCODONE/APAP 5/325 1 TAB TABLET PO PRN ×4 (04:47→17:22)
[2019-01-07] MEDS: IBUPROFEN 400 MG TABLET. PO PRN ×2 (04:47→13:33)
[2019-01-07] MEDS: FERROUS SULFATE 325 MG TABLET. PO SCH ×2 (08:00→17:22)
--- NOTE | 2019-01-07 08:05 | PDOC3 ---
OB DISCHARGE SUMMARY DATE OF ADMISSION: 01/04/19 DATE OF DISCHARGE: 01/07/19 REASON FOR ADMISSION: section (complete placenta previa and desired BTL) INTRAPARTUM PROCEDURES: : Low Cerv Trans, Tubal Ligation DISCHARGE DIAGNOSIS: Placenta Previa DISCHARGE INFORMATION: Activity (ad philipp), Diet (regular), Instructions (pelvic rest x 6 wks, no lifting > 20 lbs. x 4 wks, and no driving x 2 wks) HOSPITAL COURSE 36 wks gestation with complete placenta previa had section with BTL without complications. NAVYA CASH Jr, MD Jan 07, 2019 08:05
[2019-01-07] MEDS ORDERED: IBUP800T19 PO (08:07)
[2019-01-07] MEDS ORDERED: DOCU-109 PO (08:07)
[2019-01-07] MEDS ORDERED: OXYC1TAB15 PO (08:07)
--- NOTE | 2019-01-07 08:08 | DISCH ---
DISCHARGE INSTRUCTIONS Condition on Discharge Condition on Discharge: Stable Activity After Discharge Activity Instructions for Disc: Activity as tolerated Lifting Instructions after Dis: No heavy lifting Driving Instructions after Dis: No driving for 2 weeks Diet after Discharge Diet after Discharge: Regular Contacting the [facility] after DC Call your doctor for: Concerns you may have Follow-Up Follow up with: Dr. Huffman in 2 wks NAVYA HUFFMAN Jr, MD Jan 07, 2019 08:08
[2019-01-07] MEDS: DOCUSATE SODIUM 100 MG CAPSULE. PO PRN ×2 (08:52→17:22)
--- NOTE | 2019-01-07 10:00 | NUR ---
home instructions gone over with pt and signed no questions on home care also signed boarder policy since mat stay
[2019-01-07 10:45] VITALS: BP 122/78
[2019-01-07 16:08] VITALS: BP 132/92
--- NOTE | 2019-01-09 16:06 | PATHOLOGY ---
[facility] Accession Number: [id number] . 01 Material submitted: . PART A: placenta - PARTIAL CORD AND PLACENTA PART B: fallopian tube - RT FALLOPIAN TUBE. Modifiers: right PART C: fallopian tube - LT FALLOPIAN TUBE. Modifiers: left . 01 Clinical history: . Placenta previa, primary section . 02 Diagnosis: A. 458 gram late pre-term placenta of an estimated 36 weeks gestation with attached membranes and umbilical cord: - Eccentric insertion of umbilical cord. - Chorangiosis, focal. - Focal mild villous edema. . B. Right tubal ligation: - Segment of fallopian tube confirmed. . C. Left tubal ligation: - Segment of fallopian tube confirmed (WENDYM:bran; 01/09/2019) R/01/09/2019 . 02 Comment: There is no evidence of an acute chorioamnionitis. There are no infarcts. (YUE:bran; 01/09/2019) . 02 Electronically signed: . Obinna Lloyd MD, Pathologist NPI- [id number] . 01 Gross description: . A. The specimen is received in formalin, labeled "Federica Simental, placenta". Received is a soto placenta with attached membranes and umbilical cord with a trimmed placental weight of 458 g and measuring 15.9 x 14.8 x 3.4 cm in greatest dimensions. The membranes are pink-portillo and translucent in appearance, and the site of membrane rupture is 3.8 cm from the placental margin. The surface is intact displaying a normal arborizing vasculature pattern. The trivascular umbilical cord measures 4.6 cm in length by 1.5 cm in diameter and inserts eccentrically, 2.6 cm from the closest placental margin. The umbilical cord is white-pike to blue-portillo in appearance. The maternal surface is intact and complete; a slight amount of adherent blood coagulum is seen on the surface. There is a small possible area of disruption measuring 1.5 x 1.5 cm. Sectioning reveals pink-red to red-brown cut surfaces with no grossly distinct nodules or lesions. The specimen is submitted representatively as follows: . A1 umbilical cord and surface vessels A2 membrane roll and peripheral placental segment A3-A4 full-thickness placental cross-section, divided into and maternal aspects A5 open claims representative section through area of possible disruption. . B. The specimen is received in formalin, labeled "Federica Revels, right fallopian tube". Received is a non-fimbriated fallopian tube measuring 1.2 cm in length by 0.5 cm in diameter. The serosal surface is pink-portillo, glistening in appearance. Sectioning reveals a pinpoint to patent lumen. The specimen is submitted entirely in cassette B1. . C. The specimen is received in formalin, labeled "Federica Revels, left fallopian tube". Received is a non-fimbriated fallopian tube measuring 1.5 cm in length by 0.5 cm in diameter. The serosal surface is pink-pike to pink-portillo, glistening in appearance. Sectioning reveals a pinpoint to patent lumen. The specimen is submitted entirely in cassette C1. (CAA; 01/06/2019) QAC/QAC . 02 Pathologist provided ICD-10: O43.893, Z37.0, Z3A.36, Z30.2 . 02 CPT . 912009, [id number], [id number] Specimen Comment: A courtesy copy of this report has been sent to Specimen Comment: [phone]. Specimen Comment: Report sent to Performed at: 01 [facility] [address], [place], [place] [id number] MD Scot Soni MD Phone: [phone] Performed at: [facility] [address] [place], [place] [id number] MD Obinna Lloyd MD Phone: [phone]
== END 2019-01-07 17:45 | disposition home or self-care (01) | DRG 785 ==
LOC: 3 SO LND 05:32
PROVIDERS: ADMIT Obstetrics & Gynecology; ATTEND Obstetrics & Gynecology
PROC: 10D00Z1 Extraction of Products of Conception, Low, Open Approach (ICD-10-PCS; principal; 2019-01-04)
PROC: 0UB70ZZ Excision of Bilateral Fallopian Tubes, Open Approach (ICD-10-PCS; 2019-01-04)
DX: O44.03 Complete placenta previa NOS or without hemorrhage, third trimester (principal); O24.429 Gestational diabetes mellitus in childbirth, unspecified control; Z3A.36 36 weeks gestation of pregnancy; Z37.0 Single live birth; Z30.2 Encounter for sterilization
CPT/HCPCS: 36415; 85007; 85025; 85027; 86592; 86850; 86900; 86901; 86920; J0171; J0696; J0702; J1100; J1200; J1885; J2274; J2370; J2405; J2590; J2704; J2765; J3010; J3490; J7120; G0378

== ENCOUNTER 2019-02-18 07:16 | Emergency (ER) | payer BC ==
[~2019-02-18] VITALS: Ht 170.2 cm; Wt 99.8 kg
[~2019-02-18 07:16] MED LIST changes: +DOCU-109 PO; +OXYC1TAB15 PO
[2019-02-18 07:48] LABS: BILIRUBIN,URINE NEGATIVE (NEG); CLARITY,URINE CLEAR; COLOR,URINE YELLOW; NITRITE,URINE NEGATIVE (NEG); PROTEIN,URINE NEGATIVE (NEG-TRACE); UROBILINOGEN,URINE 0.2 mg/dL (0.2 mg/dL)
--- NOTE | 2019-02-18 07:48 | PHYS DOC ---
Past Medical History Past Medical History: No Pertinent History Past Surgical History: Cholecystectomy, Adult General Chief Complaint Chief Complaint: FLU SYMPTOM HPI HPI Patient is a 33-year-old female who presents with complaint of fever, chills, body aches and urinary discomfort for the last couple of days. She states that yesterday her temperature was 101. She denies any chest pain or shortness of breath. She also denies any cough. She indicates that she has had no sore throat or headache. She denies any back pain. [] Review of Systems Review of Systems Constitutional: Positive cough and chills [] HENT: Denies nasal congestion or sore throat [] Respiratory: Denies cough or shortness of breath [] Cardiovascular: No additional information not addressed in HPI [] GI: Denies abdominal pain, nausea, vomiting or diarrhea [] : Admits to dysuria[] Musculoskeletal: Denies back pain or joint pain [] Integument: Denies rash or skin lesions [] Neurologic: Denies headache, focal weakness or sensory changes [] Allergies Allergies Allergies Coded Allergies Type Severity Reaction Last Updated Verified Sulfa (Sulfonamide Antibiotics) Allergy Intermediate 01/05/19 Yes Physical Exam Physical Exam Constitutional: Well developed, well nourished, no acute distress, non-toxic appearance. [] HENT: Normocephalic, atraumatic, bilateral external ears normal, oropharynx moist, no oral exudates, nose normal. [] Cardiovascular:Heart rate regular rhythm, no murmur [] Lungs & Thorax: Bilateral breath sounds clear to auscultation [] Abdomen: Bowel sounds normal, soft, with mild suprapubic tenderness. [] Extremities: No tenderness, no cyanosis, no clubbing, ROM intact, no edema. [] Current Patient Data Vital Signs Vital Signs Date Time Temp Pulse Resp B/P (MAP) Pulse Ox O2 Delivery O2 Flow Rate FiO2 02/18/19 07:30 98.9 72 16 159/105 (123) 98 Room Air 98.9 Lab Values Laboratory Tests Test 02/18/19 07:23 02/18/19 07:40 Urine Collection Type Unknown Urine Color Yellow Urine Clarity Clear Urine pH 6.0 Urine Specific [place] 1.010 Urine Protein Negative mg/dL (NEG-TRACE) Urine Glucose (UA) Negative mg/dL (NEG) Urine Ketones (Stick) Negative mg/dL (NEG) Urine Blood Negative (NEG) Urine Nitrite Negative (NEG) Urine Bilirubin Negative (NEG) Urine Urobilinogen Dipstick 0.2 mg/dL (0.2 mg/dL) Urine Leukocyte Esterase Negative (NEG) Urine RBC Occ /HPF (0-2) Urine WBC Occ /HPF (0-4) Urine Squamous Epithelial Cells Few /LPF Urine Bacteria Few /HPF (0-FEW) Influenza Type A Antigen Negative (NEGATIVE) Influenza Type B Antigen Negative (NEGATIVE) EKG EKG [] Radiology/Procedures Radiology/Procedures [] Course & Med Decision Making Course & Med Decision Making Pertinent Labs and Imaging studies reviewed. (See chart for details) [] Dragon Disclaimer Dragon Disclaimer This electronic medical record was generated, in whole or in part, using a voice recognition dictation system. Departure Departure Impression: Primary Impression: Dysuria Additional Impression: Fever Disposition: 01 HOME, SELF-CARE Condition: STABLE Referrals: NO PCP (PCP) Patient Instructions: Dysuria, Fever, Adult Scripts Phenazopyridine Hcl (PYRIDIUM) 100 Mg Tablet 100 MG PO TID PRN for URINARY PAIN, #12 TAB Prov: BAILEY SOUTH Jr. DO 02/18/19 Ciprofloxacin Hcl (CIPRO) 500 Mg Tablet 1 TAB PO BID, #14 TAB Prov: BAILEY SOUTH Jr. DO 02/18/19 Problem Qualifiers Additional Impression: Fever Fever type: unspecified Qualified Codes: R50.9 - Fever, unspecified BAILEY SOUTH Jr. DO Feb 18, 2019 07:48
[2019-02-18 07:57] LABS: BACTERIA,URINE FEW /HPF (0-FEW); RBC,URINE OCC /HPF (0-2); SQUAMOUS EPITHELIAL CELL,UR FEW /LPF; WBC,URINE OCC /HPF (0-4)
[2019-02-18 08:05] LABS: INFLUENZA A PATIENT NEGATIVE (NEGATIVE)
[2019-02-18 08:06] LABS: INFLUENZA B PATIENT NEGATIVE (NEGATIVE)
[2019-02-18] MEDS ORDERED: PHEN100T82 PO (08:14)
[2019-02-18] MEDS ORDERED: CIPR500T94 PO (08:14)
[2019-02-18] MEDS ORDERED: IBUPROFEN 400 MG TABLET. PO ONE (08:15)
[2019-02-18] MEDS ORDERED: CIPROFLOXACIN HCL 250 MG TABLET. PO ONE (08:30)
[2019-02-18 09:05] VITALS: BP 144/69
== END 2019-02-18 09:07 | disposition home or self-care (01) ==
LOC: ER 07:16
DX: R30.0 Dysuria (principal); R50.9 Fever, unspecified; M79.10 Myalgia, unspecified site; Z90.49 Acquired absence of other specified parts of digestive tract; Z98.890 Other specified postprocedural states; Z88.2 Allergy status to sulfonamides
CPT/HCPCS: 81001; 87804; 99284